=== PATIENT | female | born 1975 | race Caucasian/White ===

== ENCOUNTER → 2020-10-30 11:27 | Outpatient (CLI) | payer BC, SELFPAY ==
--- NOTE | ~2020-10-30 | MM_ITS ---
EXAMINATION: MM screening lin BI w jaren HISTORY: Screening mammogram TECHNIQUE: Craniocaudal and mediolateral oblique 3-D tomosynthesis images were obtained and synthetic 2-D images were generated. CAD analysis was submitted and interpreted. COMPARISON: 03/11/2019 bilateral digital screening mammogram BREAST PARENCHYMAL COMPOSITION: The breasts are heterogeneously dense, which may obscure small masses . FINDINGS: Approximately 4 mm low-density circumscribed mass in the posterior aspect of the mid outer right breast, likely a benign intramammary lymph node. There is no evidence of suspicious mass, calci fication, or architectural distortion to suggest malignancy in either breast. There has been no suspi cious interval change. IMPRESSION: 1. No mammographic evidence of malignancy. 2. Recommend routine screening mammography in one year. BI-RADS Category 2: Benign finding(s). Reviewed, dictated and finalized at location A. 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
== END ==
PROVIDERS: PCP Internal Medicine; Visit Provider Advanced Practice Midwife
DX: Z12.31 Encounter for screening mammogram for malignant neoplasm of breast (principal)
CPT/HCPCS: 77063; 77067

== ENCOUNTER → 2022-01-06 07:53 | Outpatient (CLI) | payer BC, SELFPAY ==
--- NOTE | ~2022-01-06 | MM_ITS ---
EXAMINATION: MM screening lin BI w jaren HISTORY: Screening mammogram TECHNIQUE: Craniocaudal and mediolateral oblique 3-D tomosynthesis images were obtained and synthetic 2-D images were generated. CAD analysis was submitted and interpreted. COMPARISON: October 30, 2020, March 11, 2019 bilateral screening mammogram examinations BREAST PARENCHYMAL COMPOSITION: There are scattered areas of fibroglandular density. FINDINGS: There is no evidence of suspicious mass, calcification, or architectural distortion to sugg est malignancy in either breast. There has been no suspicious interval change. IMPRESSION: 1. No mammographic evidence of malignancy. 2. Recommend routine screening mammography in one year. BI-RADS Category 1: Negative Reviewed, dictated and finalized at location A.
--- NOTE | ~2022-01-06 | US_ITS ---
US axilla RT DATE: 01/06/2022 08:45 INDICATION: Right axillary tenderness TECHNIQUE: Real-time and color flow imaging of the right axillary soft tissues COMPARISON: 01/06/2022 bilateral screening mammogram FINDINGS: There is a normal-appearing 8 x 17 mm lymph node with thin cortex. No suspicious mass or sh adowing is detected. IMPRESSION: BI-RADS Category 1: Negative Reviewed, dictated and finalized at Location A. Reviewed, dictated and finalized at location A.
== END ==
PROVIDERS: PCP Internal Medicine; Visit Provider Advanced Practice Midwife
DX: Z12.31 Encounter for screening mammogram for malignant neoplasm of breast (principal); R22.2 Localized swelling, mass and lump, trunk
CPT/HCPCS: 76882; 77063; 77067

== ENCOUNTER 2022-07-04 01:22 | Day surgery (SDC) | payer BC, SELFPAY ==
[2022-06-18 13:11] VITALS: BMI 28.3
[2022-07-04 08:13] VITALS: BP 134/86; PULSE 86; RESP 20; TEMP 36.3; O2SAT 99
[2022-07-04] MEDS: LACTATED RINGERS 1,000 ML 150 ML IV CONT (08:20)
--- NOTE | 2022-07-04 08:36 | PM.HPGS ---
History of Present Illness History of Present Illness Consent: Risks, benefits, and alternatives have been discussed and questions answered. Patient agrees to proceed with procedure. Chief complaint: neoplasm screening Narrative: Haylie Finley is a 47 year old female Presents for screening colonoscopy. Patient reports that her current weight appetite and bowel movements are normal. Patient denies abdominal pain. She has had no bleeding. Family history is significant that her mother had colon polyps. Patient desires neoplasia screening. Review of Systems Review of Systems: Review of systems noncontributory. [facility] Family History Family History Father Family history of obesity Hypertension Family history of osteoarthritis Patient's father is Mother Hypertension Family history of osteoarthritis Sibling Hypertension Patient's sister is in good health Grandparent Carcinoma of colon Family history of lung cancer Diabetes mellitus Other Family history of malignant neoplasm of uterus Social History Social History Smoking status: Never smoker Second hand tobacco smoke exposure: No Alcohol intake: current Living arrangements: with family Spiritual care concerns: No Meds Home Medications and Allergies Home Medications Medication Instructions Recorded Confirmed Type spironolactone 100 mg tablet 100 mg PO DAILY 09/07/20 07/04/22 History esomeprazole magnesium 20 mg 20 mg PO DAILY PRN Acid Reflux 09/10/21 07/04/22 History capsule,delayed release (Nexium) amlodipine 5 mg tablet 5 mg PO DAILY #30 tabs 11/26/21 07/04/22 Rx venlafaxine 37.5 mg 37.5 mg PO DAILY #90 caps 05/14/22 07/04/22 Rx capsule,extended release 24 hr (Effexor XR) sodium,potassium,mag sulfates 17.5 See Rx Instructions PO .COMPLEX 05/15/22 07/04/22 Rx gram-3.13 gram-1.6 gram oral soln #354 mL (Suprep Bowel Prep Kit) Allergies Allergy/AdvReac Type Severity Reaction Status Date / Time metoclopramide Allergy Mild UNCONTROLABLE Verified 07/04/22 08:10 EYE MOVEMENT prochlorperazine Allergy Mild UNCONTROLLABLE Verified 07/04/22 08:10 EYE MOVEMENT ondansetron [From Zofran] Allergy Other Verified 07/04/22 08:10 Vital Signs Vital Signs - 24 hr 07/04/22 08:13 Temperature 97.3 F L Pulse Rate 86 Respiratory Rate 20 Blood Pressure 134/86 Pulse Oximetry 99 Oxygen Delivery Room Air Exam Narrative: Physical exam reveals patient to be alert. Vital signs stable. HEENT exam is unremarkable. Patient is anicteric. Lungs are clear to auscultation and percussion. Heart is without murmur or extra sounds. Abdomen bowel sounds are present soft nontender with no organomegaly. Digital external rectal exam is normal. Assessment and Plan Assessment and plan (1) Family history of colonic polyps: Code(s): Z83.71 - Family history of colonic polyps Status: Acute Assessment and Plan: Patient has a family history of colon polyps in her mother. Plan for surveillance colonoscopy now. Consider this at 5 year intervals in the future.
--- NOTE | 2022-07-04 09:06 | WPDANESEPPF ---
Anes - Initial Pre Proc Eval Procedure: Operation Date: 07/04/22 09:15 Proposed Procedures p Screening Colonoscopy - Martir Carroll MD Date/Time: 07/04/22 09:06 Surgeon: Martir Carroll MD Pre Op Diagnosis: neoplasm screening Patient Data Age: 47 Gender: F Height: 1.63 m Weight: 74.2 kg Last Vital Signs Temp 97.3 F L 07/04/22 08:13 Pulse 86 07/04/22 08:13 Resp 20 07/04/22 08:13 BP 134/86 07/04/22 08:13 Pulse Ox 99 07/04/22 08:13 O2 Del Method Room Air 07/04/22 08:13 Allergies Allergy/AdvReac Type Severity Reaction Status Date / Time metoclopramide Allergy Mild UNCONTROLABLE Verified 07/04/22 08:10 EYE MOVEMENT prochlorperazine Allergy Mild UNCONTROLLABLE Verified 07/04/22 08:10 EYE MOVEMENT ondansetron [From Zofran] Allergy Other Verified 07/04/22 08:10 Home Medications Medication Instructions Recorded Confirmed Type spironolactone 100 mg tablet 100 mg PO DAILY 09/07/20 07/04/22 History esomeprazole magnesium 20 mg 20 mg PO DAILY PRN Acid Reflux 09/10/21 07/04/22 History capsule,delayed release (Nexium) amlodipine 5 mg tablet 5 mg PO DAILY #30 tabs 11/26/21 07/04/22 Rx venlafaxine 37.5 mg 37.5 mg PO DAILY #90 caps 05/14/22 07/04/22 Rx capsule,extended release 24 hr (Effexor XR) sodium,potassium,mag sulfates 17.5 See Rx Instructions PO .COMPLEX 05/15/22 07/04/22 Rx gram-3.13 gram-1.6 gram oral soln #354 mL (Suprep Bowel Prep Kit) Patient hx anesthesia problems: none Family hx anesthesia problems: none Results Review: All pre-operative results and documents have been reviewed as part of the pre-operative evaluation. [facility] Family History Family History Father Family history of obesity Hypertension Family history of osteoarthritis Patient's father is Mother Hypertension Family history of osteoarthritis Sibling Hypertension Patient's sister is in good health Grandparent Carcinoma of colon Family history of lung cancer Diabetes mellitus Other Family history of malignant neoplasm of uterus Social History Social History Smoking status: Never smoker Second hand tobacco smoke exposure: No Alcohol intake: current Living arrangements: with family Spiritual care concerns: No Anes - Eval Final PreProcedure Day of Procedure 07/04/22 09:06 Patient weight: normal Heart: regular rate and rhythm Lungs: clear to auscultation Neurological: alert and oriented Last oral intake: >/= 8 hours Emergent: no Anesthetic plan: proceed Results Review: All pre-operative results and documents have been reviewed as part of the pre-operative evaluation. Informed Consent: The patient's anesthetic plan and its attendant risks and benefits were discussed with the patient/family/POA. Questions were solicited and answers provided to the satisfaction of the patient/family/POA.
[2022-07-04 09:30] VITALS: BP 104/65; PULSE 85; RESP 18; O2SAT 96
[2022-07-04 09:40] VITALS: BP 108/52; PULSE 83; RESP 17; O2SAT 99
[2022-07-04 09:50] VITALS: BP 115/83; PULSE 80; RESP 18; O2SAT 99
== END 2022-07-04 09:53 | disposition home or self-care (01) ==
PROVIDERS: PCP Internal Medicine; Visit Provider Internal Medicine Gastroenterology
PROC: 0DJD8ZZ Inspection of Lower Intestinal Tract, Via Natural or Artificial Opening Endoscopic (ICD-10-PCS; CPT 45378; principal; 2022-07-04 09:15)
DX: Z12.11 Encounter for screening for malignant neoplasm of colon (principal); K63.5 Polyp of colon; Z83.71 Family history of colonic polyps
CPT/HCPCS: 45385; 88305; J2001; J2704; J7120

== ENCOUNTER → 2023-05-23 07:47 | Outpatient (CLI) | payer BC, SELFPAY ==
--- NOTE | ~2023-05-23 | MM_ITS ---
EXAMINATION: MM screening lin BI w jaren HISTORY: Screening mammogram TECHNIQUE: Craniocaudal and mediolateral oblique 3-D tomosynthesis images were obtained and synthetic 2-D images were generated. CAD analysis was submitted and interpreted. COMPARISON: 01/06/2022, 10/30/2020 bilateral screening mammogram examinations BREAST PARENCHYMAL COMPOSITION: There are scattered areas of fibroglandular density. FINDINGS: Right breast: Stable low-density circumscribed approximately 3.6 x 4.1 mm opacity is noted posteriorly in the mid to upper outer right breast, unchanged since October 30, 2020. No suspicious m ass, architectural distortion, malignant constipation, skin thickening or retraction or other signifi cant change is noted on the right. There are several circumscribed opacities on the left including 2 in the posterior lower outer quadra nt, measuring 7.2 x 11.5 mm and 3 x 3.7 mm, and another in the more anterior upper outer quadrant lef t breast measuring 2.6 x 3.2 mm. Diagnostic left mammogram and left breast ultrasound examination are recommended. No suspicious mass, architectural distortion, malignant calcification, skin thickening or retraction of either breast is noted on the left otherwise. IMPRESSION: 1. Left lower outer quadrant breast masses 2. Diagnostic left mammogram and left breast ultrasound examination are recommended BI-RADS Category 0: Incomplete: Needs additional imaging evaluation. Reviewed, dictated and finalized at location A. IMPRESSION: 1. Left lower outer quadrant breast masses 2. Diagnostic left mammogram and left breast ultrasound examination are recomme nded BI-RADS Category 0: Incomplete: Needs additional imaging evaluation.
== END ==
PROVIDERS: PCP Obstetrics & Gynecology; Visit Provider Obstetrics & Gynecology
DX: Z12.31 Encounter for screening mammogram for malignant neoplasm of breast (principal); R92.8 Other abnormal and inconclusive findings on diagnostic imaging of breast
CPT/HCPCS: 77063; 77067

== ENCOUNTER 2023-06-19 07:36 | Outpatient (CLI) | payer BC, SELFPAY ==
--- NOTE | ~2023-06-19 | MMUS_ITS ---
EXAMINATION: MM diagnostic lin LT w jaren, US breast LT limited HISTORY: TECHNIQUE: Additional 3-D tomosynthesis images of were performed and synthetic 2-D images were genera efren. CAD analysis was submitted and interpreted. High resolution breast ultrasound was performed. COMPARISON: None FINDINGS: MAMMOGRAPHIC FINDINGS: Oval circumscribed approximately 6 x 11 mm opacity is noted posteriorly in the lower outer quadrant o f the left breast (MLO Tomosynthesis image 19/73). Approximately 4 mm partially circumscribed mass is suggested posteriorly in the lower outer quadrant of the left breast (coned compression ML Tomosynthesis image 13/63; coned compression MLO Tomosynthes is image 12/62). Circumscribed 3 mm low-density opacity is noted in the lower inner left breast at junction of anterio r middle thirds depth (coned compression ML Tomosynthesis image 50/63). No suspicious mass, architectural distortion, malignant calcification, skin thickening or retraction is detected. ULTRASOUND: 4:00 5 cm from nipple: Parallel circumscribed 3.9 x 11.1 x 9 mm sonolucency without internal vascular ity or posterior shadowing, compatible with simple cyst 4:00 5 cm from nipple: 2.5 x 3.2 x 2.6 mm mildly septated cyst 4:00 4 cm from nipple: 10/23/2019 7 mm circumscribed hypoechoic lesion, likely benign. IMPRESSION: 1. Probable benign findings 2. 6 month left breast ultrasound follow-up is recommended to document stability BI-RADS category 3, probably benign findings. Reviewed, dictated and finalized at location A. IMPRESSION: 1. Probable benign findings 2. 6 month left breast ultrasound follow-up is recommended to document stabilit y BI-RADS category 3, probably benign findings.
== END 2023-06-19 07:37 ==
LOC: MICIMG 07:37
PROVIDERS: PCP Obstetrics & Gynecology; Visit Provider Obstetrics & Gynecology
DX: Z12.31 Encounter for screening mammogram for malignant neoplasm of breast (principal); R92.8 Other abnormal and inconclusive findings on diagnostic imaging of breast
CPT/HCPCS: 76642; 77061; 77065; G0279

== ENCOUNTER 2023-12-17 09:17 | Outpatient (CLI) | payer BC, SELFPAY ==
--- NOTE | ~2023-12-17 | US_ITS ---
US breast LT limited DATE: 12/17/2023 09:43 INDICATION: Six-month follow-up of probable benign findings of left breast at 4:00 TECHNIQUE: Real-time imaging and color flow imaging targeted at left breast 4-5:00 COMPARISON: 06/19/2020 diagnostic left mammogram and limited left breast ultrasound FINDINGS: 4-5:00 5 cm from nipple: 7 x 15 x 14 mm simple cyst 4.-5:00 4 cm from nipple: 2.5 x 2.7 mm sonolucency with posterior wall enhancement, likely a small cy st. No suspicious mass or shadowing is detected. IMPRESSION: BI-RADS Category 2: Benign Recommendation: Routine annual mammographic screening Reviewed, dictated and finalized at Location A. Reviewed, dictated and finalized at location A.
== END 2023-12-17 09:18 ==
LOC: MICIMG 09:19
PROVIDERS: PCP Obstetrics & Gynecology; Visit Provider Obstetrics & Gynecology
DX: R92.8 Other abnormal and inconclusive findings on diagnostic imaging of breast (principal)
CPT/HCPCS: 76642

== ENCOUNTER 2024-05-28 09:18 | Outpatient (CLI) | payer BC, SELFPAY ==
--- NOTE | ~2024-05-28 | MM_ITS ---
EXAMINATION: MM screening lin BI w jaren HISTORY: Screening mammogram TECHNIQUE: Craniocaudal and mediolateral oblique 3-D tomosynthesis images were obtained and synthetic 2-D images were generated. CAD analysis was submitted and interpreted. COMPARISON: 05/23/2023, 01/06/2022, 10/30/2020, 03/11/2019 BREAST PARENCHYMAL COMPOSITION:Dense: The breasts are heterogeneously dense, which may obscure small masses. FINDINGS: 1.8 x 1.4 cm oval mass at the lower left breast is significantly increased in size from jaz or exam. No other suspicious mass, calcification, or architectural distortion are identified in eithe r breast to suggest malignancy. IMPRESSION: 1.8 x 1.4 cm oval mass the lower left breast is significantly increased in size. Given increase in s ize, repeat ultrasound of the lesion is recommended at this time to reassess. BI-RADS Category 0: Incomplete: Needs additional imaging evaluation. Reviewed, dictated and finalized at location . IMPRESSION: 1.8 x 1.4 cm oval mass the lower left breast is significantly increased in siz e. Given increase in size, repeat ultrasound of the lesion is recommended at th is time to reassess. BI-RADS Category 0: Incomplete: Needs additional imaging evaluation.
== END 2024-05-28 09:19 | disposition home or self-care (01) ==
PROVIDERS: PCP Obstetrics & Gynecology; Visit Provider Obstetrics & Gynecology
DX: Z12.31 Encounter for screening mammogram for malignant neoplasm of breast (principal); R92.8 Other abnormal and inconclusive findings on diagnostic imaging of breast
CPT/HCPCS: 77063; 77067

== ENCOUNTER 2024-06-21 08:05 | Outpatient (CLI) | payer BC, SELFPAY ==
--- NOTE | ~2024-06-21 | US_ITS ---
US breast LT limited 06/21/2024 08:27 Indication: Follow-up left breast mass Procedure: High-resolution Limited ultrasound of the left breast Comparison: Mammograms dated 06/21 and 05/28/2024 Findings: At 4:00, 4 cm from the nipple there is a 2 mm cyst. At 5:00, 5 cm from the nipple there is a 1.9 x 1.0 x 1.8 cm cyst corresponding to the mammographic finding. No suspicious solid masses to lópez ggest malignancy. Impression: 1: No sonographic evidence for malignancy. Benign findings. Routine yearly screening mammogram and regular clinical breast examination are recommended. BI-RADS CATEGORY 2 - BENIGN FINDINGS Reviewed, dictated and finalized at location B. Impression: 1: No sonographic evidence for malignancy. Benign findings. Routine yearly screening mammogram and regular clinical breast examination are recommended. BI-RADS CATEGORY 2 - BENIGN FINDINGS
== END 2024-06-21 08:06 | disposition home or self-care (01) ==
PROVIDERS: PCP Surgery; Visit Provider Obstetrics & Gynecology
DX: R92.8 Other abnormal and inconclusive findings on diagnostic imaging of breast (principal)
CPT/HCPCS: 76642

== ENCOUNTER 2025-04-25 07:55 | Outpatient (CLI) | payer BC, SELFPAY ==
--- OUTSIDE RECORDS SUMMARY | 2025-04-25 08:02 | XMS_ITS | Clinical Summary ---
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 Role Phone Unavailable Primary Care Provider Unavailabl e Social History Tobacco Use Types Packs/Day Years Used Date Smoking Tobacco: Never Assessed Comments Unknown Sex and Gender Information Value Date Recorded Sex Assigned at Not on file Legal Sex Female 4:13 PM CDT Gender Identity Not on file Sexual Orientation Not on file Plan of Treatment Health Maintenance Due Date Last Done Comments Cervical Cancer Screening Pa p Smear (Age 30 to 64) Every 3 Years 1977 Colorectal Cancer Screening Colonoscopy (10 Years) 1977 Annual Physical 01/14/1980 Hepatitis C 1995 DTaP, Tdap and Td Vaccines ( 1 - Tdap) 01/14/1996 Hepatitis B Vaccines (1 of 3 - 19+ 3-dose series) 01/14/1996 Cervical Cancer Screening Pa p with HPV Testing (Age 30 to 64) Every 5 Years 2007 Cervical Cancer Screening with HPV 2007 Mammogram Screening 2017 COVID-19 Vaccine ( - 2023-2 5 season) 2024 PHQ-2 (Physician [place]) 09/21/2024 Meningococcal B Vaccine Aged Out No l onger eligible based on patient's age to complete this topic Meningococcal Vaccine Aged Out No bogdan sulma eligible based on patient's age to complete this topic Pneumococcal Vaccine: Pediat rics (0 to 5 Years) and At-Risk Patients (6 to 49 Years) Aged Out No longer eligible b ased on patient's age to complete this topic RSV Immunizations Under 20 Months Aged Out No longer eligible based on patient's age to complete this topic Insurance [facility]
--- OUTSIDE RECORDS SUMMARY | 2025-04-25 08:02 | XMS_ITS | Clinical Summary ---
Author Organization [facility] Address [address] 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
--- NOTE | 2025-05-15 13:50 | WPDSLEEPSTUD ---
Sleep Study Date of Study: 04/25/25 Ordering Provider: Bret Moore APRN Interpreting Physician: Joelle Jacques DO Sleep Study Type: Split Polysomnogram Height: 1.63 m Weight: 77.111 kg Body Mass Index: 29.2 Neck Circumference (inches): 14 [place]: 14 Reason for Sleep Study Daytime hypersomnia Sleep History The patient is a 50-year-old female who had a sleep study ordered by her primary care for evaluation of sleep apnea. The patient denies awakening from sleep short of breath. She frequently awakens at night with heartburn, belching, or cough. She constantly snores loudly enough that others complain. She frequently has trouble sleeping when she has a cold. She denies waking up gasping for air throughout the night. She denies having breathing problems at night, observed by herself or others. She occasionally sweats excessively at night. She denies having heart palpitations or irregular heartbeats during the night. She constantly falls asleep during the day, but never while driving. She denies sleep paralysis, cataplexy, and hypnagogic/hypnopompic hallucinations. She frequently has trouble at school or work due to sleepiness. She denies feeling afraid of going to sleep. She denies having nightmares. She rarely remembers her dreams. She occasionally has thoughts racing through her mind. She denies feeling sad or depressed. She occasionally has anxiety. She denies having muscular tension. She rarely notices parts of her body jerk. She denies kicking during the night. She denies having crawling and aching feelings in her legs and denies having leg pain during the night. She denies grinding her teeth during sleep and denies awakening with morning jaw pain. She denies being bothered by pain during the day and denies being awakened by pain during the night. She denies waking up feeling stiff in the morning. She occasionally wakes up with sore or achy muscles. She denies waking up with pain in the neck, spine, and other joints. She goes to bed between 11:30 p.m. to midnight on weekdays and between midnight to 1 a.m. on weekends. It takes her 30 to 60 minutes to fall asleep. She wakes up once throughout the night to urinate and is able to fall back asleep within 10 to 15 minutes. She wakes up at 5:50 a.m. two times a week and 6:50 a.m. three times a week on weekdays. She wakes up at noon on the weekends. She typically gets six to seven hours of sleep per night. She will stay in bed for one hour after waking up in the morning. She currently lives with her and two children. She denies consuming any caffeinated beverages within two hours of bedtime. She denies engaging in physical exercise before bedtime. She will occasionally read and watch television before falling asleep. She will take naps in afternoon or the evening and they are refreshing. She consumes 1-2 caffeinated beverages per day. She denies tobacco, alcohol and recreational drug use. [facility] Past Medical History Medical History Essential (primary) hypertension Abnormal mammogram of left breast Gastro-esophageal reflux disease without esophagitis Hypertension Surgical History Surgical History H/O left knee surgery Family History Family History Father Family history of obesity Hypertension Family history of osteoarthritis Patient's father is Mother Hypertension Family history of osteoarthritis Sibling Hypertension Patient's sister is in good health Grandparent Carcinoma of colon Family history of lung cancer Diabetes mellitus Other Family history of malignant neoplasm of uterus Social History Social History Smoking status: Never smoker Second hand tobacco smoke exposure: No Alcohol intake: current Substance use: never Substance use type: does not use Lack of Transportation: No Lack of Food: Never True Current Housing: I Have Housing Concerned About Future Housing: No Difficulty Paying Gas/Electric Bills: No Difficulty Paying for Meds: No Currently Unemployed: No Education: Trade/Vocational Certificate Difficulty w/ Childcare or Family Care: No Living arrangements: with family Spiritual care concerns: No Medications Home Medications ?Medication ?Instructions ?Recorded ?Confirmed ?Type venlafaxine 37.5 mg 37.5 mg PO DAILY #30 caps 02/23/25 03/01/25 Rx capsule,extended release 24 hr (Effexor XR) clascoterone 1 % topical cream 1 applic topical DAILY 30 days #60 03/01/25 03/01/25 Rx (Winlevi) grams amlodipine 5 mg tablet See Rx Instructions .Route 04/24/25 Rx .COMPLEX #90 tabs rimegepant 75 mg disintegrating 75 mg PO ONCE PRN migraine 04/26/25 Rx tablet (Nurtec ODT) headache #10 tabs spironolactone 100 mg tablet See Rx Instructions .Route 05/01/25 Rx .COMPLEX #90 tabs Sleep Procedure A full night split study using the [employer]isters multi-channel system recorded the standard physiologic parameters including EEG, EOG, submentalis EMG, anterior tibialis EMG, EKG, body position, nasal and oral airflow using nasal pressure sensor and thermistor.? Respiratory parameters of chest and abdominal movements were recorded with Respiratory Inductance Plethysmography belts. Oxygen saturation was recorded by pulse oximetry. Video monitoring was also performed. Sleep stages, periodic limb movements, and EEG arousals were scored in 30 second epochs according to the criteria of the AASM Scoring Manual. The Apnea-Hypopnea Index was calculated using CMS guidelines for definition of hypopnea with 4% O2 desaturations while scoring respiratory events. Sleep Architecture During the diagnostic portion of the study, the total recording time was 162.5 minutes. The total sleep time was 145.0 minutes. Sleep latency was 7.5 minutes.? REM latency was 125.0 minutes. Sleep Efficiency was 89.2%. The patient had 6 awakenings for an awakening index of 2.5. Wake after sleep onset time was 10.0 minutes. The patient spent 2.5 minutes, 1.7% of total sleep time in Stage N1. The patient spent 29.5 minutes, 20.3% in Stage N2. The patient spent 88.0 minutes, 60.7% in Stage N3. The patient spent 25.0 minutes, 17.2% in Stage REM sleep. At 01:41:48 AM the patient was placed on PAP treatment and was titrated at pressures ranging from 5 cm H20 up to 7 cm H20. During the treatment portion of the study, the total recording time was 243.7 minutes.? The total sleep time was 235.5 minutes. Sleep latency was 3.0 minutes. REM latency was 54.5 minutes. Sleep Efficiency was 96.6%. Wake after Sleep Onset time was 5.0 minutes. The patient spent 4.0 minutes, 1.7% of total sleep time in Stage N1. The patient spent 119.5 minutes, 50.7% in Stage N2. The patient spent 34.0 minutes, 14.4% in Stage N3. The patient spent 78.0 minutes, 33.1% in Stage REM. Respiratory Analysis During the diagnostic portion of the study, the patient had 39 hypopneas and 3 obstructive apneas for an overall Apnea Hypopnea Index of 17.4 events per hour. The REM Apnea Hypopnea Index was 72.0. The NREM Apnea Hypopnea Index was 9.0. The patient had a Central Apnea Hypopnea Index of 0.There was no evidence of Mathew-Sparks Respirations. During the treatment portion of the study, the patient had 2 hypopneas, 1 obstructive apnea and 2 central apneas for an overall Apnea Hypopnea Index of 1.3 events per hour. The REM Apnea Hypopnea Index was 1.5. The NREM Apnea Hypopnea Index was 1.1. The patient had a Central Apnea Hypopnea Index of 0.5. There was no evidence of Mathew-Sparks Respirations. The patient was started on CPAP 5 cm H2O and titrated to CPAP 7 H2O due to central apneas and hypopneas. The patient was able to fall asleep starting on CPAP 5 cm H2O. The patient was able to achieve REM sleep starting on CPAP 6 cm H2O. The patient was able to achieve a residual AHI less than 5 with both NREM and REM sleep in the supine position on 6 cm H2O and 7 cm H2O. On CPAP 7 cm H2O, the patient spent 100.5 minutes in NREM and 46 minutes in REM with 1 hypopnea, resulting in an AHI of 0.4. The patient had a sleep efficiency of 97% on this pressure setting. Arousals During the diagnostic portion of the study, there were a total of 23 arousals for an arousal index of 9.5.? There were 6 respiratory arousals for an index of 2.5. There were 2 periodic limb movement arousals for an index of 0.8.? There were 1 isolated limb movement arousals for an index of 0.4. There were 14 spontaneous arousals for an index of 5.8. During the treatment portion of the study, there were a total of 32 arousals for an index of 8.2.? There were 0 respiratory arousals for an index of 0. There were 0 periodic limb movement arousals for an index of 0.? There were 10 isolated limb movement arousals for an index of 2.5. There were 22 spontaneous arousals for an index of 5.6. Periodic Limb Movements During the diagnostic portion of the study, the patient had 3 isolated limb movements with an index of 1.2. The patient had 30 periodic limb movements with an index of 12.4. The patient had a total of 33 limb movements with a total limb movement index of 13.7. During the treatment portion of the study, the patient had 19 isolated limb movements with an index of 4.8. The patient had 10 periodic limb movements with an index of 2.5. The patient had a total of 29 limb movements with a total limb movement index of 7.4. Oximetry Data During the diagnostic portion of the study, the patient had an average oxygen saturation of 92.8% in wake with a minimum oxygen saturation of 89% and a maximum oxygen saturation of 98%. The patient had an average oxygen saturation of 90.7% in sleep with a minimum oxygen saturation of 83.0% and a maximum oxygen saturation of 97.0%. The patient had 65 oxygen desaturations resulting in an Oxygen Desaturation Index of 26.9. The patient spent 5.2 minutes, 3.2% of total sleep time with an oxygen saturation less than 88%. During the treatment portion of the study, the patient had an average oxygen saturation of 95.0% in wake with a minimum oxygen saturation of 93.0% and a maximum oxygen saturation of 98.0%. The patient had an average oxygen saturation of 94.3% in sleep with a minimum oxygen saturation of 91.0% and a maximum oxygen saturation of 98.0%. The patient had 16 oxygen desaturations resulting in an Oxygen Desaturation Index of 4.1. The patient spent 0 minutes of total sleep time with an oxygen saturation less than 88%. Snoring Profile Moderate to loud snoring was present in the baseline portion of the study. The snoring resolved once the patient was titrated to CPAP 7 cm H2O. Cardiac Profile The EKG lead showed normal sinus rhythm with rare PVCs. During the diagnostic portion of the study, the average pulse rate was 85.6 bpm.? The minimum pulse rate was 75.0 bpm. The maximum pulse rate was 107.0 bpm. During the treatment portion of the study, the average pulse rate was 78.9 bpm.? The minimum pulse rate was 66.0 bpm. The maximum pulse rate was 102.0 bpm. EEG Profile No signs of seizure activity seen. Assessment and Plan Assessment and Plan (1) BRENDAN (obstructive sleep apnea): Code(s): G47.33 - Obstructive sleep apnea (adult) (pediatric) Status: Acute Assessment and Plan: In the baseline portion of the study, the patient had an overall AHI of 17.4 with desaturation down to 83%. This is consistent with moderate sleep apnea. The patient was started on CPAP 5 cm H2O and titrated to CPAP 7 H2O due to central apneas and hypopneas. The patient's sleep apnea resolved on multiple pressure settings. I recommend that the patient be prescribed CPAP 7 cm H2O, size small Resmed AirTouch F20 full face mask, CPAP filters/tubing and heated humidity. This should be used with all episodes of sleep.? Compliance should be reviewed within 31-90 days of starting therapy for usage greater than 4 hours per night greater than 70% of the nights. The patient should be asked about symptoms such as?excessive daytime sleepiness, quality of sleep, decreased nocturia, increased?mental functioning such as memory, mood, and concentration. Data The data obtained during this sleep study is adequate for interpretation. Certification This sleep study has been reviewed by a board certified sleep medicine physician.
[2025-05-17 11:28] VITALS: BMI 29.2
== END 2025-04-26 06:31 | disposition home or self-care (01) ==
LOC: ANHCSM 07:57
PROVIDERS: PCP Nurse Practitioner; Visit Provider Nurse Practitioner
DX: G47.33 Obstructive sleep apnea (adult) (pediatric) (principal); G47.10 Hypersomnia, unspecified; R06.83 Snoring; I10 Essential (primary) hypertension
CPT/HCPCS: 95811

== ENCOUNTER 2025-06-08 12:52 | Outpatient (CLI) | payer BC, SELFPAY ==
--- NOTE | ~2025-06-08 | MM_ITS ---
EXAMINATION: MM screening lin BI w jaren HISTORY: Screening TECHNIQUE: Craniocaudal and mediolateral oblique 3-D tomosynthesis images were obtained and synthetic 2-D images were generated. CAD analysis was submitted and interpreted. COMPARISON: Comparison to multiple prior studies sequentially, with oldest reviewed study dated 03/11/2019. BREAST PARENCHYMAL COMPOSITION: The breasts are heterogeneously dense, which may obscure small masses. FINDINGS: There is no evidence of suspicious mass, calcification, or architectural distortion to suggest malignancy in either breast. Circumscribed mass seen in the inferior at posterior depth within the left breast known to represent a cyst is unchanged. IMPRESSION: 1. No mammographic evidence of malignancy. 2. Recommend routine screening mammography in one year. BI-RADS Category 2: Benign finding(s). Reviewed, dictated and finalized at location B.
== END 2025-06-08 12:53 | disposition home or self-care (01) ==
LOC: ANHFOHIMG 12:54
PROVIDERS: PCP Nurse Practitioner; Visit Provider Obstetrics & Gynecology
DX: Z12.31 Encounter for screening mammogram for malignant neoplasm of breast (principal)
CPT/HCPCS: 77063; 77067